=== PATIENT | female | born 1990 | race Caucasian/White ===

== ENCOUNTER 2020-05-29 04:22 | Inpatient (IN) ==
[2020-05-29] MEDS ORDERED: Azithromycin 500 MG in 0.9 % Sodium Chloride 250 ML IVPB ONE (04:38)
[2020-05-29] MEDS ORDERED: Famotidine 20 MG/2 ML VIAL IVP PRN (04:38)
[2020-05-29] MEDS ORDERED: Metoclopramide 10 MG/2 ML VIAL IVP PRN ×2 (04:38→09:33)
[2020-05-29] MEDS ORDERED: Ringers Solution, Lactated 1,000 ML IVC SCH (04:45)
[2020-05-29] MEDS ORDERED: *HR* Morphine Sulfate/PF 10 MG/10 ML AMPUL ONE (04:53)
[2020-05-29 04:56] LABS: Basophils % 0.2 %; Lymphocytes % 9.2 %; Mean Platelet Volume 11.2 fL (9.4-12.4); Red Cell Distribution Width 13.2 % (11.5-14.5)
[2020-05-29 04:58] LABS: Eosinophils % 0.1 %; Hematocrit 32.4 % (35.3-44.9); Hemoglobin 10.5 g/dL (11.5-15.4); Immature Granulocytes % 0.7 % (0-4); Immature Platelets 7.8 % (1.1-6.1); Mean Corpuscular HGB Conc 32.4 g/dL (31.6-35.5); Mean Corpuscular Hemoglobin 28.3 pg (28.0-33.3); Mean Corpuscular Volume 87.3 fL (83.0-100.0); Monocytes # 0.5 K/mcL (0.0-1.3); Platelet Count 141 K/mcL (140-400); Red Blood Count 3.71 M/mcL (3.82-4.97); Segmented Neutrophils % 84.8 %; White Blood Count 10.3 K/mcL (4.3-11.1)
[2020-05-29 05:10] LABS: Neutrophils # 8.7 K/mcL (1.6-8.9)
[2020-05-29] MEDS ORDERED: ceFAZolin 2,000 MG in Water for inj. (sterile) 20 ML IVP ONE (05:10)
[2020-05-29] MEDS ORDERED: Ondansetron 4 MG/2 ML VIAL ONE (05:16)
[2020-05-29] MEDS ORDERED: *HR* FentaNYL (PF) 100 MCG/2 ML VIAL ONE (05:21)
[2020-05-29] MEDS ORDERED: *HR* Phenylephrine 10 MG/ML VIAL ONE (05:21)
[2020-05-29] MEDS ORDERED: *HR* Oxytocin 10 UNIT/ML VIAL IM ONE (05:42)
[2020-05-29] MEDS ORDERED: Oxytocin 20 units/ LR 1000 mL 20 UNIT/1,000 ML BAG IVC ONE ×2 (05:42→07:36)
[2020-05-29] MEDS ORDERED: Acetaminophen IV 1,000 MG/100 ML BAG IVPB ONE (05:45)
[2020-05-29] MEDS ORDERED: *HR* OxyCODONE Immed Rel 5 MG TABLET PO PRN ×2 (05:50→09:33)
[2020-05-29] MEDS ORDERED: *HR* FentaNYL (PF) 100 MCG/2 ML VIAL IVP PRN (05:50)
[2020-05-29 05:55] LABS: Adenovirus Not Detected (Not Detect); Bordetella Pertussis Not Detected (Not Detect); Chlamydophila pneumoniae Not Detected (Not Detect); Coronavirus 229E Not Detected (Not Detect); Coronavirus HKU1 Not Detected (Not Detect); Coronavirus NL63 Not Detected (Not Detect); Coronavirus OC43 Not Detected (Not Detect); Human Metapneumovirus Not Detected (Not Detect); Human Rhinovirus/Enterovirus Not Detected (Not Detect); Influenza A Subtype 2009 H1 Not Detected (Not Detect); Influenza B Not Detected (Not Detect); Mycoplasma pneumoniae Not Detected (Not Detect); Parainfluenza Virus 1 Not Detected (Not Detect); Parainfluenza Virus 2 Not Detected (Not Detect); Parainfluenza Virus 3 Not Detected (Not Detect); Parainfluenza Virus 4 Not Detected (Not Detect); Respiratory Syncytial Virus Not Detected (Not Detect); SARS-CoV-2 Not Detected (Not Detect)
[2020-05-29 06:12] LABS: Rubella IgG Antibody Negative (POSITIVE); Varicella Zoster IgG Antibody Positive
[2020-05-29] MEDS ORDERED: Ketorolac 30 MG/ML VIAL ONE (06:12)
[2020-05-29] MEDS ORDERED: Dexamethasone 4 MG/ML VIAL ONE (06:12)
[2020-05-29 06:16] LABS: Hepatitis B Surface Antigen Nonreactive (Nonreactive)
[2020-05-29 06:45] LABS: HIV-1&2 Antibody & p24 Ag Nonreactive (Nonreactive)
[2020-05-29] MEDS ORDERED: Acetaminophen 325 MG TABLET PO PRN (09:33)
[2020-05-29] MEDS ORDERED: *HR* OxyCODONE/APAP 5/325 TABLET PO PRN (09:33)
[2020-05-29] MEDS ORDERED: cephALEXin 500 MG CAPSULE PO SCH (09:33)
[2020-05-29] MEDS ORDERED: Prenatal Vit/FA 1 EACH TABLET PO SCH (09:33)
[2020-05-29] MEDS ORDERED: Sennosides 8.6 MG TABLET PO PRN (09:33)
[2020-05-29] MEDS ORDERED: Ondansetron 4 MG/2 ML VIAL IVP PRN (09:33)
[2020-05-29] MEDS ORDERED: Oxytocin 20 units/ LR 1000 mL 20 UNIT/1,000 ML BAG IVC SCH (09:33)
[2020-05-29] MEDS ORDERED: Simethicone 80 MG TAB.CHEW PO PRN (09:33)
[2020-05-29] MEDS ORDERED: Ibuprofen 600 MG TABLET PO PRN (09:33)
[2020-05-29] MEDS: cephALEXin 500 MG CAPSULE PO SCH ×3 (11:09→21:34)
[2020-05-29] MEDS: metroNIDAZOLE 500 MG TABLET PO SCH ×2 (15:02→21:34)
[2020-05-30 04:49] LABS: Basophils % 0.2 %; Eosinophils # 0.1 K/mcL (0.0-0.6); Eosinophils % 0.8 %; Hematocrit 28.7 % (35.3-44.9); Hemoglobin 9.2 g/dL (11.5-15.4); Immature Granulocytes % 0.8 % (0-4); Lymphocytes # 1.5 K/mcL (0.6-4.6); Lymphocytes % 18.4 %; Mean Corpuscular HGB Conc 32.1 g/dL (31.6-35.5); Mean Corpuscular Hemoglobin 28.5 pg (28.0-33.3); Mean Corpuscular Volume 88.9 fL (83.0-100.0); Mean Platelet Volume 11.3 fL (9.4-12.4); Monocytes # 0.5 K/mcL (0.0-1.3); Monocytes % 5.8 %; Neutrophils # 6.2 K/mcL (1.6-8.9); Platelet Count 121 K/mcL (140-400); Red Blood Count 3.23 M/mcL (3.82-4.97); Red Cell Distribution Width 13.3 % (11.5-14.5); White Blood Count 8.3 K/mcL (4.3-11.1)
[2020-05-30 07:56] VITALS: BP 100/67
[2020-05-30] MEDS: metroNIDAZOLE 500 MG TABLET PO SCH (07:58)
== END 2020-05-30 09:30 | disposition home or self-care (01) | DRG 788 ==
LOC: 1NENULAB 04:22 → 1NENUOBS 09:09
PROVIDERS: ADMIT Obstetrics & Gynecology; ATTEND Obstetrics & Gynecology